=== PATIENT | male | born 1965 | race Caucasian/White ===

== ENCOUNTER 2017-09-06 17:50 | Emergency (ER) | payer MEDICAID ==
[~2017-09-06] VITALS: Ht 182.9 cm; Wt 85.0 kg
[~2017-09-06 17:50] MED LIST: CIPR500T4 PO; DOXE25CA2 PO; PROM25TA5 PO
[2017-09-06 17:52] VITALS: BP 154/92; PULSE 86; RESP 18; TEMP 98.7; O2SAT 96
--- NOTE | 2017-09-06 19:26 | PD ---
HPI Chief Complaint: Musculoskeletal Complaint Time Seen by Provider: 18:23 Travel History International Travel<30 days: No Contact w/Intl Traveler<30days: No Traveled to known affect area: No History of Present Illness HPI 51-year-old male here with left hip pain after he had a slip and fall while going down the steps today. He reports his left leg slipped out causing him to fall into a seated position sliding down the stairs. No head injury or loss of consciousness. Patient is not anticoagulated. He has pain with weightbearing. He denies headache, visual changes, neck pain, chest pain, shortness of breath , abdominal pain, paresthesia or weakness of the extremities. Symptom severity is moderate. Worse with weightbearing and slightly relieved with rest. PFSH Past Medical History Autoimmune Disease: Yes (HEREDITARY ANGIOEDEMA) Anxiety: Yes (PT STATES HIS ANXIETY AND STRESS CAUSES ANGIOEDEMA) Cardiovascular Problems: Yes (ANGIO EDEMA) Diminished Hearing: No Kidney Stones: Yes (STENT REMOVED 03/08/14/) Immunizations Current: Yes Tetanus Vaccination: < 5 Years Influenza Vaccination: No Social History Alcohol Use: Yes ("MAYBE 3 TIMES A YEAR") Tobacco Use: Yes (1 PPD "CIGARS") Substance Use: No Allergies-Medications (Allergen,Severity, Reaction): Coded Allergies: codeine (Unverified Allergy, Mild, NAUSEA AND EDEMA, 09/06/17) diphenhydramine (Unverified Allergy, Mild, EDEMA, 09/06/17) penicillin G (Unverified Allergy, Mild, NAUSEA, 09/06/17) Reported Meds & Prescriptions Reported Meds & Active Scripts Active Review of Systems Except as stated in HPI: all other systems reviewed are Neg General / Constitutional: No: Fever Eyes: No: Visual changes HENT: No: Headaches Cardiovascular: No: Chest Pain or Discomfort Respiratory: No: Shortness of Breath Gastrointestinal: No: Abdominal Pain Genitourinary: No: Dysuria Physical Exam Narrative GENERAL: Alert and well-appearing 51-year-old male. Patient ambulating without difficulty SKIN: Warm and dry. No areas of ecchymosis HEAD: Atraumatic. Normocephalic. EYES: Pupils equal and round. EOMs intact. No injection or drainage. ENT: No nasal bleeding or discharge. Mucous membranes pink and moist. NECK: Trachea midline. No midline spine tenderness. CARDIOVASCULAR: Regular rate and rhythm. No chest wall tenderness RESPIRATORY: No accessory muscle use. Clear to auscultation. Breath sounds equal bilaterally. GASTROINTESTINAL: Abdomen soft, non-tender, nondistended. MUSCULOSKELETAL: Extremities without clubbing, cyanosis, or edema. No obvious deformities. Pelvis is stable to rocking test. Left lower extremity : +TTP left lateral hip and left buttocks. Patient can flex and externally rotate the left hip. 2+ distal pulses. Normal sensation. Brisk cap refill NEUROLOGICAL: Awake and alert. No obvious cranial nerve deficits. Motor grossly within normal limits. Five out of 5 muscle strength in the arms and legs. Normal speech. PSYCHIATRIC: Appropriate mood and affect; insight and judgment normal. Data Data Last Documented VS Vital Signs Date Time Temp Pulse Resp B/P (MAP) Pulse Ox O2 Delivery O2 Flow Rate FiO2 09/06/17 17:52 98.7 86 18 154/92 (112) 96 Orders Orders Hip, Uni(Ap&Lat) W Ap Pelvis (09/06/17 ) MDM Medical Decision Making Medical Screen Exam Complete: Yes Emergency Medical Condition: Yes Differential Diagnosis Hip fracture versus contusion, pelvis fracture versus contusion, lumbar strain Narrative Course 51-year-old male here with a left hip pain after falling into a seated position while going down the stairs. She appears comfortable and is actually asleep on the stretcher when I entered the room. The extremity is neurovascularly intact. X-ray is negative for fracture. Patient be treated for contusion. Diagnosis Primary Impression: Contusion of buttock Qualified Codes: S30.0XXA - Contusion of lower back and pelvis, initial encounter Referrals: Primary Care Physician Additional Instructions: Tylenol or ibuprofen as needed for pain. Follow-up with her primary doctor. Avoid heavy lifting or strenuous activity. Disposition: 01 DISCHARGE HOME Condition: Stable Darby Barksdale Sep 06, 2017 19:26
--- NOTE | 2017-09-06 19:31 | RADRPT ---
EXAM DATE/TIME: 09/06/2017 18:55 [facility] COMPARISON: No previous studies available for comparison. INDICATIONS : Left hip pain after falling down some stairs. MEDICAL HISTORY : None. SURGICAL HISTORY : None. ENCOUNTER: Initial ACUITY: 1 day PAIN SCORE: 4/10 LOCATION: Left hip. FINDINGS: Examination of the left hip was performed with AP Pelvis. The primary and secondary trabecular patte rn of the femoral neck is intact. The hip joint is of normal width without significant sclerosis or bony hypertrophy. The acetabulum is grossly intact. CONCLUSION: 1. No acute findings. Av Land MD on September 06, 2017 at 19:27 Board Certified Radiologist. This report was verified electronically.
== END 2017-09-06 19:46 | disposition home or self-care (01) ==
LOC: PHEFT 17:50
DX: S30.0XXA Contusion of lower back and pelvis, initial encounter (principal); W10.9XXA Fall (on) (from) unspecified stairs and steps, initial encounter
CPT/HCPCS: 73502; 99283